=== PATIENT | female | born 1950 | race Caucasian/White ===

== ENCOUNTER → 2018-01-04 15:08 | Outpatient (CLI) | payer MEDICARE, SELFPAY ==
[2018-01-04 17:24] LABS: Add Manual Diff / Slide Review NO; Eosinophils Percent Auto 2.9 % (2-4); Hematocrit 42.6 % (36-46); Hemoglobin 14.7 g/dL (12.0-16.0); Lymphocytes Percent Auto 28.1 % (25-40); Mean Corpuscular HGB Conc 34.6 % (30-36); Mean Corpuscular Hemoglobin 31.3 PG (26-34); Mean Corpuscular Volume 90.4 fL (80-100); Neutrophils Absolute Auto 4500 /uL (3000-5900); Platelet Count 234 X10^3/uL (150-400); Red Blood Cell Count 4.71 X10^6/uL (4.0-5.2); Red Cell Distribution Width 13.3 % (11.6-14.8); White Blood Cell Count 7.7 X10^3/uL (4.5-11.0)
[2018-01-04 18:04] LABS: Alanine Aminotransferase 27 IU/L (9-52); Albumin 4.4 g/dL (3.5-5.0); Albumin Globulin Ratio 1.4 (1.0-2.8); Alkaline Phosphatase 76 U/L (38-126); Aspartate Aminotransferase 28 IU/L (14-36); BUN Creatinine Ratio 22.9 (6-22); Bilirubin Total 0.5 mg/dL (0.2-1.3); Bilirubin Unconjugated 0.1 mg/dL (0.0-1.1); Blood Urea Nitrogen 16 mg/dL (7-17); Calcium 9.7 mg/dL (8.4-10.2); Carbon Dioxide 26 mmol/L (22-32); Chloride 104 mmol/L (98-107); Estimated Glomerular Filt Rate > 60.0 mL/min (>60); Globulin 3.1 g/dL (1.7-4.1); Glucose 150 mg/dL (80-110); HEMOLYSIS 16 (0-50); Potassium 4.2 mmol/L (3.4-5.1); Sodium 143 mmol/L (137-145); Total Protein 7.5 g/dL (6.3-8.2)
[2018-01-07 14:28] LABS: QuantiFERON TB Negative (Negative)
== END ==
PROVIDERS: Family Provider Family Medicine; PCP Family Medicine; Visit Provider Physician Assistant Medical
DX: L40.0 Psoriasis vulgaris (principal)
CPT/HCPCS: 36415; 80053; 80076; 85025; 86480

== ENCOUNTER → 2018-11-12 09:04 | Outpatient (CLI) | payer OTHER, MEDICARE, SELFPAY ==
[2018-11-12 11:12] LABS: Add Manual Diff / Slide Review NO; Basophils Absolute Auto 100 /uL (0-100); Basophils Percent Auto 1.4 % (0-2); Eosinophils Absolute Auto 300 /uL (0-450); Eosinophils Percent Auto 4.4 % (2-4); Hematocrit 40.1 % (36-46); Hemoglobin 13.7 g/dL (12.0-16.0); Lymphocytes Absolute Auto 2200 /uL (1100-4500); Lymphocytes Percent Auto 37.6 % (25-40); Mean Corpuscular HGB Conc 34.1 % (30-36); Mean Corpuscular Hemoglobin 30.8 PG (26-34); Mean Corpuscular Volume 90.3 fL (80-100); Monocytes Absolute Auto 700 /uL (0-900); Monocytes Percent Auto 11.2 % (3-14); Neutrophils Absolute Auto 2600 /uL (1500-7000); Neutrophils Percent Auto 45.4 % (50-75); Platelet Count 211 X10^3/uL (150-400); Red Blood Cell Count 4.44 X10^6/uL (4.0-5.2); Red Cell Distribution Width 13.2 % (11.6-14.8); White Blood Cell Count 5.8 X10^3/uL (4.5-11.0)
[2018-11-12 11:54] LABS: Alanine Aminotransferase 19 IU/L (9-52); Albumin 4.3 g/dL (3.5-5.0); Albumin Globulin Ratio 1.4 (1.0-2.8); Alkaline Phosphatase 85 U/L (38-126); Aspartate Aminotransferase 28 IU/L (14-36); BUN Creatinine Ratio 28.6 (6-22); Bilirubin Total 0.4 mg/dL (0.2-1.3); Blood Urea Nitrogen 20 mg/dL (7-17); Calcium 10.2 mg/dL (8.4-10.2); Carbon Dioxide 28 mmol/L (22-32); Chloride 103 mmol/L (98-107); Estimated Glomerular Filt Rate > 60.0 mL/min (>60); Glucose 111 mg/dL (80-110); HEMOLYSIS < 15 (0-50); Potassium 4.6 mmol/L (3.4-5.1); Sodium 140 mmol/L (137-145); Total Protein 7.3 g/dL (6.3-8.2)
[2018-11-15 11:49] LABS: Mitogen-NIL 6.89 IU/mL; NIL 0.01 IU/mL; QuantiFERON TB NEGATIVE (Negative); TB1-NIL < 0.01 IU/mL; TB2-NIL < 0.01 IU/mL
== END ==
PROVIDERS: Family Provider Family Medicine; PCP Family Medicine; Visit Provider Physician Assistant Medical
DX: L40.0 Psoriasis vulgaris (principal)
CPT/HCPCS: 36415; 80053; 85025; 86480

== ENCOUNTER → 2019-06-03 10:18 | Outpatient (CLI) | payer OTHER, MEDICARE, SELFPAY ==
[2019-06-03 11:00] LABS: Add Manual Diff / Slide Review NO; Basophils Absolute Auto 0 /uL (0-100); Basophils Percent Auto 0.6 % (0-2); Eosinophils Absolute Auto 300 /uL (0-450); Eosinophils Percent Auto 4.2 % (2-4); Hematocrit 41.1 % (36-46); Hemoglobin 13.9 g/dL (12.0-16.0); Lymphocytes Absolute Auto 1900 /uL (1100-4500); Lymphocytes Percent Auto 31.1 % (25-40); Mean Corpuscular HGB Conc 33.9 % (30-36); Mean Corpuscular Hemoglobin 31.4 PG (26-34); Mean Corpuscular Volume 92.8 fL (80-100); Monocytes Absolute Auto 500 /uL (0-900); Monocytes Percent Auto 8.7 % (3-14); Neutrophils Absolute Auto 3500 /uL (1500-7000); Neutrophils Percent Auto 55.4 % (50-75); Platelet Count 240 X10^3/uL (150-400); Red Blood Cell Count 4.43 X10^6/uL (4.0-5.2); White Blood Cell Count 6.2 X10^3/uL (4.5-11.0)
[2019-06-03 11:37] LABS: Alanine Aminotransferase 22 IU/L (<35); Albumin 4.3 g/dL (3.5-5.0); Albumin Globulin Ratio 1.4 (1.0-2.8); Alkaline Phosphatase 84 U/L (38-126); Aspartate Aminotransferase 31 IU/L (14-36); BUN Creatinine Ratio 28.8 (6-22); Bilirubin Total 0.5 mg/dL (0.2-1.3); Blood Urea Nitrogen 23 mg/dL (7-17); Calcium 9.7 mg/dL (8.4-10.2); Carbon Dioxide 26 mmol/L (22-32); Chloride 104 mmol/L (98-107); Estimated Glomerular Filt Rate > 60.0 mL/min (>60); Glucose 111 mg/dL (80-110); HEMOLYSIS < 15 (0-50); Potassium 4.4 mmol/L (3.4-5.1); Sodium 138 mmol/L (137-145); Total Protein 7.3 g/dL (6.3-8.2)
== END ==
PROVIDERS: PCP Family Medicine; Visit Provider Physician Assistant Medical
DX: L40.0 Psoriasis vulgaris (principal)
CPT/HCPCS: 36415; 80053; 85025

== ENCOUNTER → 2020-03-30 11:26 | Outpatient (CLI) | payer OTHER, MEDICARE, SELFPAY ==
[2020-04-01 14:07] LABS: QuantiFERON Mitogen Value 9.07 IU/mL (.); QuantiFERON Nil Value 0.14 IU/mL (.); QuantiFERON TB Gold Plus Negative (Negative); QuantiFERON TB1 Ag Value 0.33 IU/mL (.); QuantiFERON TB2 Ag Value 0.13 IU/mL (.)
== END ==
PROVIDERS: PCP Family Medicine; Referring Provider Physician Assistant Medical; Visit Provider Physician Assistant Medical
DX: Z79.899 Other long term (current) drug therapy (principal)
CPT/HCPCS: 36415; 86480

== ENCOUNTER → 2020-07-12 08:38 | Outpatient (CLI) | payer OTHER, MEDICARE, SELFPAY ==
--- NOTE | 2020-07-12 | DI.RAD.S_ITS ---
PROCEDURE: XR CHEST 2V INDICATIONS: XR TECHNIQUE: 2 views of the chest were acquired. COMPARISON: [facility], , CHEST 1 VIEW, 10/03/2016, 14:22. FINDINGS: Surgical changes and devices: None. Lungs and pleura: Lungs are clear. No pleural effusions or pneumothorax. Mediastinum: Mediastinal contours are normal. Heart size is normal. Bones and chest wall: No suspicious bony abnormalities. Soft tissues appear unremarkable. IMPRESSION: No acute cardiopulmonary abnormality Dictated by: Too Graham M.D. on 07/12/2020 at 9:36 Approved by: Too Graham M.D. on 07/12/2020 at 9:37
--- NOTE | 2020-07-12 | DI.RAD.S_ITS ---
PROCEDURE: XR HIP W PEL IF DONE RT 2V INDICATIONS: XR TECHNIQUE: 3 views of the hip were acquired. COMPARISON: None. FINDINGS: Bones: No fractures or dislocations. No suspicious bony lesions. The visualized pelvic ring appears intact. Soft tissues: No suspicious soft tissue calcifications or masses. IMPRESSION: AP view of the pelvis and two views of the right hip show no fracture or dislocation. Both hips have degenerative changes. Soft tissues are normal. Dictated by: Too Graham M.D. on 07/12/2020 at 9:34 Approved by: Too Graham M.D. on 07/12/2020 at 9:36
== END ==
PROVIDERS: Referring Provider Nurse Practitioner Family; Visit Provider Nurse Practitioner Family
DX: M25.551 Pain in right hip (principal); R05 Cough
CPT/HCPCS: 71046; 73502

== ENCOUNTER → 2020-07-30 13:04 | Outpatient (CLI) | payer OTHER, MEDICARE, SELFPAY ==
[2020-07-30 14:28] LABS: COVID19 -Nasal RAPID Negative (Negative)
--- NOTE | 2020-08-07 11:40 | PM.PFT.1 ---
Pulmonary Function Test Referral & Results Date Patient Seen: 07/30/20 Requesting provider: Saundra Vega Indication: The spirometry demonstrates an FVC of 2.72 L which is 82% of predicted. The FEV1 was measured at 1.87 L which is 73% of predicted. The FEV1/FVC ratio was 69 which is 89% of predicted. Following the administration of bronchodilator there was no appreciable change. Lung volumes show an SVC of 2.61 L which is 84% of predicted. The diffusing capacity was measured at 24.13 which is 89% of predicted. The maximum voluntary ventilation was normal Results: This study demonstrates mild obstructive lung disease based on reduction FEV1 although FEV1/FVC ratio is preserved. There really is no notable evidence of benefit following bronchodilator although there was a slight improvement in FEF 25-75% (22% improvement) which suggest some improvement in small airway flow Patient's lung volumes are also minimally reduced suggesting element of restrictive lung disease Interpretation: Patient with perhaps very mild obstructive lung disease as above. This is also indicated by shape of flow volume loop so I believe it to be real Clinical correlation suggested
== END ==
PROVIDERS: Referring Provider Nurse Practitioner Family
DX: R06.02 Shortness of breath (principal); Z20.822 Contact with and (suspected) exposure to COVID-19; J98.8 Other specified respiratory disorders
CPT/HCPCS: 87635; 94060; 94726; 94729; C9803

== ENCOUNTER → 2022-04-14 14:30 | Outpatient (CLI) | payer OTHER, SELFPAY ==
[2022-04-14 15:44] LABS: Add Manual Diff / Slide Review NO; Basophils Absolute Auto 100 /uL (0-100); Basophils Percent Auto 1.1 % (0-2); Eosinophils Absolute Auto 200 /uL (0-450); Eosinophils Percent Auto 3.1 % (2-4); Hematocrit 38.5 % (36-46); Hemoglobin 13.3 g/dL (12.0-16.0); Lymphocytes Absolute Auto 2400 /uL (1100-4500); Lymphocytes Percent Auto 34.9 % (25-40); Mean Corpuscular HGB Conc 34.6 % (30-36); Mean Corpuscular Hemoglobin 31.3 PG (26-34); Mean Corpuscular Volume 90.6 fL (80-100); Monocytes Absolute Auto 600 /uL (0-900); Monocytes Percent Auto 9.3 % (3-14); Neutrophils Absolute Auto 3500 /uL (1500-7000); Neutrophils Percent Auto 51.6 % (50-75); Platelet Count 238 X10^3/uL (150-400); Red Blood Cell Count 4.25 X10^6/uL (4.0-5.2); Red Cell Distribution Width 13.1 % (11.6-14.8); White Blood Cell Count 6.9 X10^3/uL (4.5-11.0)
[2022-04-14 16:19] LABS: Alanine Aminotransferase 22 IU/L (<35); Albumin 4.2 g/dL (3.5-5.0); Albumin Globulin Ratio 1.4 (1.0-2.8); Alkaline Phosphatase 89 U/L (38-126); Aspartate Aminotransferase 27 IU/L (14-36); BUN Creatinine Ratio 22.5 (6-22); Bilirubin Total 0.4 mg/dL (0.2-1.3); Blood Urea Nitrogen 18 mg/dL (7-17); Calcium 9.5 mg/dL (8.4-10.2); Carbon Dioxide 27 mmol/L (22-32); Chloride 106 mmol/L (98-107); Estimated Glomerular Filt Rate > 60 mL/min (>60); Globulin 3.1 g/dL (1.7-4.1); Glucose 111 mg/dL (80-110); HEMOLYSIS < 15 (0-50); Potassium 3.9 mmol/L (3.4-5.1); Sodium 140 mmol/L (137-145); Total Protein 7.3 g/dL (6.3-8.2)
[2022-04-18 03:57] LABS: QuantiFERON Mitogen Value >10.00 IU/mL (.); QuantiFERON TB Gold Plus Negative (Negative); QuantiFERON TB1 Ag Value 0.01 IU/mL (.); QuantiFERON TB2 Ag Value 0.01 IU/mL (.)
== END ==
PROVIDERS: PCP Family Medicine; Referring Provider Physician Assistant Medical; Visit Provider Physician Assistant Medical
DX: Z79.899 Other long term (current) drug therapy (principal)
CPT/HCPCS: 36415; 80053; 85025; 86480

== ENCOUNTER → 2023-05-26 11:05 | Outpatient (CLI) | payer OTHER, SELFPAY ==
[2023-05-26 11:57] LABS: Add Manual Diff / Slide Review NO; Basophils Absolute Auto 100 /uL (0-100); Basophils Percent Auto 1.1 % (0-2); Eosinophils Absolute Auto 300 /uL (0-450); Eosinophils Percent Auto 4.6 % (2-4); Hematocrit 41.4 % (36-46); Lymphocytes Absolute Auto 2500 /uL (1100-4500); Lymphocytes Percent Auto 36.6 % (25-40); Mean Corpuscular HGB Conc 33.9 % (30-36); Mean Corpuscular Hemoglobin 30.3 PG (26-34); Mean Corpuscular Volume 89.2 fL (80-100); Monocytes Absolute Auto 700 /uL (0-900); Monocytes Percent Auto 10.2 % (3-14); Neutrophils Absolute Auto 3200 /uL (1500-7000); Neutrophils Percent Auto 47.5 % (50-75); Platelet Count 238 X10^3/uL (150-400); Red Blood Cell Count 4.64 X10^6/uL (4.0-5.2); Red Cell Distribution Width 13.2 % (11.6-14.8); White Blood Cell Count 6.8 X10^3/uL (4.5-11.0)
[2023-05-26 12:07] LABS: Alanine Aminotransferase 20 IU/L (<35); Albumin 4.4 g/dL (3.5-5.0); Albumin Globulin Ratio 1.3 (1.0-2.8); Alkaline Phosphatase 83 U/L (38-126); Aspartate Aminotransferase 29 IU/L (14-36); BUN Creatinine Ratio 24.2 (6-22); Bilirubin Total 0.6 mg/dL (0.2-1.3); Blood Urea Nitrogen 16 mg/dL (7-17); Calcium 9.6 mg/dL (8.4-10.2); Carbon Dioxide 26 mmol/L (22-32); Chloride 104 mmol/L (98-107); Cholesterol 227 mg/dL (140-199); Estimated Glomerular Filt Rate > 60 mL/min (>60); Globulin 3.4 g/dL (1.7-4.1); Glucose 100 mg/dL (80-110); HDL Cholesterol 52 mg/dL (40-60); HEMOLYSIS < 15 (0-50); LDL Cholesterol Calculated 139 mg/dL (<100); Potassium 4.2 mmol/L (3.4-5.1); Sodium 139 mmol/L (137-145); Total Protein 7.8 g/dL (6.3-8.2); Triglycerides 182 mg/dL (35-150)
[2023-05-26 12:36] LABS: TSH w/ Reflex to FT4 3.95 uIU/mL (0.47-4.68)
== END ==
PROVIDERS: PCP Family Medicine; Referring Provider Family Medicine; Visit Provider Family Medicine
DX: E03.9 Hypothyroidism, unspecified (principal); R03.0 Elevated blood-pressure reading, without diagnosis of hypertension; R73.01 Impaired fasting glucose; E78.2 Mixed hyperlipidemia
CPT/HCPCS: 36415; 80053; 80061; 84443; 85025

== ENCOUNTER 2023-09-13 12:35 | Day surgery (SDC) | payer OTHER, MEDICARE, SELFPAY ==
--- NOTE | 2023-09-13 | PATH_ITS ---
[facility] Accession Number: [id number] No. of containers..01 Tissue . 01 Material submitted: . colon - CECAL POLYPS X5 . 01 Diagnosis: Colon, cecum, polyps x5, biopsies: Sessile serrated adenomas in two fragments with one benign lymphoid aggregate. Tubular adenomas with inflammation in three fragments. TXN 09/18/2023 1212 Local . 01 Electronically signed: . Tawcullen Trinidad MD, Pathologist NPI- [id number] . 01 Gross description: . Received in formalin, labeled with two identifiers and cecal polyps, are 5 fragments of orantes, soft tissue ranging in size from 0.3 cm to 0.9 cm in greatest dimension. All tissue is entirely submitted in one cassette. ([id number]) /FRR 09/15/2023 1826 Local . 01 Pathologist provided ICD-10: Z12.11 . 01 CPT . 776129 Specimen Comment: A courtesy copy of this report has been sent to [phone] Performed at: 01 [facility] [address] [place] [address], [place], [place] [id number] MD Hector High MD Phone: [phone]
[2023-09-13 13:08] VITALS: BP 159/72; PULSE 81; RESP 16; TEMP 36.6; O2SAT 99
--- NOTE | 2023-09-13 14:14 | P.HP_ITS ---
History of Present Illness History of Present Illness Date Patient Seen: 09/13/23 Time Patient Seen: 14:14 Chief complaint: Dx Colonoscopy w/poss bx Narrative: Sharon is a 73-year-old woman who is here for colonoscopy for a positive fit test. Please see the office note from July 30 for details. [facility] Medical History Hypothyroidism Hypertension Insomnia Social History Smoking Status: Never smoker alcohol intake: current Meds Home Medications and Allergies Home Medications Medication Instructions Recorded Confirmed Type propranolol 10 mg tablet 10 mg PO SEE INSTRUCTIONS #100 tabs 07/26/16 09/13/23 Rx apremilast 30 mg tablet (Otezla) 30 mg PO BID 07/30/23 09/13/23 History levothyroxine 125 mcg capsule 125 mcg PO DAILY 07/30/23 09/13/23 History losartan 50 mg tablet 50 mg PO DAILY 07/30/23 07/30/23 History methocarbamol 500 mg tablet 500 mg PO ONCE 07/30/23 09/13/23 History naproxen sodium 220 mg tablet 220 mg PO BID PRN Pain (Scale 07/30/23 09/13/23 History (Aleve) Score 1-3) omeprazole 20 mg tablet,delayed 20 mg PO DAILY 07/30/23 09/13/23 History release theanine 200 mg capsule 200 mg PO DAILY 07/30/23 07/30/23 History trazodone 50 mg tablet 75 mg PO BEDTIME PRN Insomnia 07/30/23 09/13/23 History Allergies Allergy/AdvReac Type Severity Reaction Status Date / Time Sulfa (Sulfonamide Allergy Unknown HIVES Verified 09/13/23 12:42 Antibiotics) [SULFA (SULFONAMIDE ANTIBIOTICS)] Exam Vital Signs (past 8 hours): - 09/13/23 13:08 Temperature 97.8 F Pulse Rate 81 Respiratory Rate 16 Blood Pressure 159/72 H Pulse Oximetry 99 Oxygen Delivery Method Room Air Oxygen Delivery Method Room Air Const General: No acute distress Resp Effort & Inspection: normal respiratory effort Assessment & Plan Assessment and plan (1) Positive colorectal cancer screening using Cologuard test: Status: Acute Plan We reviewed the risks and benefits for colonoscopy and she would like to proceed
--- NOTE | 2023-09-13 14:59 | P.OP.COLON_ITS ---
Operative Date/Time/Diagnoses Date of procedure: 09/13/23 Time of procedure: 14:59 Pre-op diagnosis: Positive Cologuard test Post-op diagnosis: same Procedure & Clinicians Study performed: Colonoscopy Same procedure as scheduled: Yes Surgeon: Francisco Alvarez Procedure Notes Procedure in detail: Surgeon: Francisco Alvarez MD Anesthesia: Agatha Monroe CRNA Procedure: The patient was brought to the endoscopy suite, placed in left lateral decubitus position. The patient was connected to monitoring devices. A time-out was performed. Sedation was administered. Once the patient was adequately sedated, a digital rectal exam was performed and was normal. The scope was then inserted and advanced to the cecum where the appendiceal orifice was identified and photographed. The scope was then slowly withdrawn over greater than 6 minutes. The mucosa was thoroughly inspected. There were 5 p olyps all in the cecum in all less than 1 cm. Four of them were removed with a cold snare and one was removed with the Jumbo forceps. The scope was retroflexed in the rectum. No other abnormalities were seen. The scope was straightened and removed. The patient was awakened and brought to recovery. Scope withdrawal time: 13 minutes Sedation time: 19 minutes EBL: 5 mL Findings: 5 polyps under 1 cm in the cecum Post-procedure Disposition: PACU
[2023-09-13 15:01] VITALS: BP 123/71; PULSE 70; RESP 18; TEMP 36.8; O2SAT 95
[2023-09-13 15:06] VITALS: BP 127/62; PULSE 62; RESP 14; O2SAT 96
[2023-09-13 15:11] VITALS: BP 134/70; PULSE 63; RESP 14; O2SAT 96
[2023-09-13 15:17] VITALS: BP 136/72; PULSE 56; RESP 14; O2SAT 99
== END 2023-09-13 15:29 | disposition home or self-care (01) ==
PROVIDERS: PCP Family Medicine; Referring Provider Surgery; Visit Provider Surgery
PROC: 0DJD8ZZ Inspection of Lower Intestinal Tract, Via Natural or Artificial Opening Endoscopic (ICD-10-PCS; CPT 45378; principal; 2023-09-13 13:45)
DX: Z12.11 Encounter for screening for malignant neoplasm of colon (principal); R19.5 Other fecal abnormalities; D12.0 Benign neoplasm of cecum
CPT/HCPCS: 45385; 45380; J2704

== ENCOUNTER → 2024-03-06 15:05 | Outpatient (CLI) | payer OTHER, MEDICARE, SELFPAY ==
[2024-03-06 15:27] LABS: Add Manual Diff / Slide Review NO; Basophils Absolute Auto 100 /uL (0-100); Basophils Percent Auto 0.8 % (0-2); Eosinophils Absolute Auto 200 /uL (0-450); Eosinophils Percent Auto 2.5 % (2-4); Hematocrit 38.3 % (36-46); Lymphocytes Absolute Auto 2600 /uL (1100-4500); Lymphocytes Percent Auto 34.7 % (25-40); Mean Corpuscular HGB Conc 33.9 % (30-36); Mean Corpuscular Hemoglobin 30.2 PG (26-34); Mean Corpuscular Volume 89.1 fL (80-100); Monocytes Absolute Auto 700 /uL (0-900); Neutrophils Absolute Auto 3800 /uL (1500-7000); Platelet Count 250 X10^3/uL (150-400); Red Cell Distribution Width 13.6 % (11.6-14.8); White Blood Cell Count 7.3 X10^3/uL (4.5-11.0)
[2024-03-06 15:49] LABS: Alanine Aminotransferase 20 IU/L (<35); Albumin 4.2 g/dL (3.5-5.0); Albumin Globulin Ratio 1.4 (1.0-2.8); Alkaline Phosphatase 95 U/L (38-126); Aspartate Aminotransferase 28 IU/L (14-36); BUN Creatinine Ratio 30.3 (6-22); Bilirubin Total 0.5 mg/dL (0.2-1.3); Blood Urea Nitrogen 23 mg/dL (7-17); Calcium 9.9 mg/dL (8.4-10.2); Carbon Dioxide 26 mmol/L (22-32); Chloride 103 mmol/L (98-107); Estimated Glomerular Filt Rate > 60 mL/min (>60); Glucose 117 mg/dL (80-110); HEMOLYSIS < 15 (0-50); Potassium 4.3 mmol/L (3.4-5.1); Sodium 137 mmol/L (137-145); Total Protein 7.2 g/dL (6.3-8.2)
== END ==
LOC: LAB 15:08
PROVIDERS: PCP Family Medicine; Referring Provider Physician Assistant Medical; Visit Provider Physician Assistant Medical
DX: L40.0 Psoriasis vulgaris (principal); L40.59 Other psoriatic arthropathy; Z79.899 Other long term (current) drug therapy
CPT/HCPCS: 36415; 80053; 85025; 86480

== ENCOUNTER → 2024-05-22 15:33 | Outpatient (CLI) | payer OTHER, MEDICARE, SELFPAY ==
--- NOTE | 2024-05-22 15:37 | DI.RAD.S_ITS ---
PROCEDURE: XR HAND LT MIN 3V INDICATIONS: PAIN IN BOTH HANDS TECHNIQUE: 3 views of the hand acquired. COMPARISON: None. FINDINGS: Bones: No acute fractures or dislocations. Carpal bones are normally aligned. No suspicious bony lesions. Diffuse bilateral arthritic changes at the interphalangeal joints of the fingers and at the 1st carpometacarpal, 1st carpometacarpal, and triscaphe joint. A few scattered juxta-articular lucencies are present. Generalized osteopenia. Soft tissues: No suspicious soft tissue calcifications. IMPRESSION: Moderate to severe arthritic changes throughout the wrist and fingers. A few juxta-articular lucencies may represent degenerative subchondral cystic changes or chronic osseous erosions. Approved by: Clay Major M.D. on 05/22/2024 at 20:28
--- NOTE | 2024-05-22 15:37 | DI.RAD.S_ITS ---
PROCEDURE: XR HAND RT MIN 3V INDICATIONS: PAIN IN BOTH HANDS TECHNIQUE: 3 views of the hand acquired. COMPARISON: None. FINDINGS: Bones: No acute fractures or dislocations. Carpal bones are normally aligned. No suspicious bony lesions. Joint space narrowing is seen throughout the interphalangeal joints of the fingers with subchondral sclerosis and small marginal osteophytes. Degenerative changes are also seen at the 1st carpometacarpal joint and triscaphe joint as well as the 1st metacarpophalangeal joint. A few scattered juxta-articular lucencies are present including at the 2nd metacarpophalangeal joint. There is generalized osteopenia. Soft tissues: No suspicious soft tissue calcifications. IMPRESSION: Multifocal moderate to severe arthritic changes. A few juxta-articular lucencies may represent subchondral cystic changes or chronic osseous erosions. Approved by: Clay Major M.D. on 05/22/2024 at 20:16
== END ==
PROVIDERS: PCP Family Medicine; Referring Provider Family Medicine; Visit Provider Family Medicine
DX: M79.641 Pain in right hand (principal); M85.842 Other specified disorders of bone density and structure, left hand; M85.841 Other specified disorders of bone density and structure, right hand; M79.642 Pain in left hand
CPT/HCPCS: 73130

== ENCOUNTER → 2025-04-29 16:02 | Outpatient (CLI) | payer OTHER, MEDICARE, SELFPAY ==
--- NOTE | 2025-04-29 | DI.RAD.S_ITS ---
PROCEDURE: XR HIP W PEL IF DONE RT 2V
== END ==
LOC: RAD 16:04
PROVIDERS: PCP Family Medicine; Referring Provider Family Medicine; Visit Provider Family Medicine
DX: M25.551 Pain in right hip (principal)
CPT/HCPCS: 73502

== ENCOUNTER 2025-05-21 19:47 | Emergency (ER) | payer OTHER, MEDICARE, SELFPAY ==
[2025-05-21 20:15] VITALS: BP 165/74; PULSE 95; RESP 18; TEMP 36.6; O2SAT 95; BMI 29.9
[2025-05-21] MEDS: ONDANSETRON 4 MG/2 ML INJ IV (21:29)
--- NOTE | 2025-05-21 21:35 | EKG_ITS ---
[address] [address] Test Date: 2025-05-21 Pat Name: September Mari Department: Room: Gender: Female Steward/Stewardess Night: CYRUS : 1950 Requested By: Order Number: [id number] Reading MD: Germain Garcia Measurements Intervals [place] Rate: 93 P: 68 MA: 162 QRS: 66 QRSD: 98 T: 69 QT: 380 QTc: 472 Interpretive Statements Normal sinus rhythm Incomplete right bundle branch block Electronically Signed On 05-23-2025 13:30:40 PST by Germain Garcia
[2025-05-21 21:43] LABS: Add Manual Diff / Slide Review NO; Hematocrit 38.7 % (36-46); Hemoglobin 13.3 g/dL (12.0-16.0); Lymphocytes Absolute Auto 1000 /uL (1100-4500); Mean Corpuscular HGB Conc 34.4 % (30-36); Mean Corpuscular Hemoglobin 30.1 PG (26-34); Mean Corpuscular Volume 87.6 fL (80-100); Platelet Count 261 X10^3/uL (150-400)
[2025-05-21 21:47] LABS: Alanine Aminotransferase 20 IU/L (<35); Albumin 4.8 g/dL (3.5-5.0); Albumin Globulin Ratio 1.3 (1.0-2.8); Alkaline Phosphatase 83 U/L (38-126); Blood Urea Nitrogen 20 mg/dL (7-17); Calcium 9.8 mg/dL (8.4-10.2); Carbon Dioxide 23 mmol/L (22-32); Chloride 104 mmol/L (98-107); Estimated Glomerular Filt Rate > 60 mL/min (>60); Globulin 3.8 g/dL (1.7-4.1); Glucose 170 mg/dL (70-99); Lipase 456 U/L (23-300); Sodium 138 mmol/L (137-145)
[2025-05-21 21:49] LABS: HEMOLYSIS 115 (0-50); Potassium 4.5 mmol/L (3.4-5.1)
[2025-05-21 21:50] LABS: Total Protein 8.6 g/dL (6.3-8.2)
[2025-05-21 22:07] LABS: Culture Indicated Urine Cult Not Indicated
--- NOTE | 2025-05-21 22:47 | ED.NAVMDI ---
HPI - Nausea/Vomiting/Diarrhea General Chief complaint: Nausea/Vomiting/Diarrhea Stated complaint: Vomiting past couple hours Time Seen by Provider: 05/21/25 22:46 Source: patient Mode of arrival: Ambulatory History of Present Illness HPI Narrative: Patient is a 75-year-old female history of psoriatic arthritis, hypothyroid hypertension presenting today with nausea vomiting. Reports that it came on rather suddenly she has been throwing up pretty persistently for 3 hours unable to keep anything down. No diarrhea no fever no chills. She had some acid and burning in her chest for that as gone now. No one else is sick at home. She does have prior surgery of appendicitis. She now since being in the emergency department has not had any further vomiting. Related Data Home Medications ?Medication ?Instructions ?Recorded ?Confirmed apremilast 30 mg tablet (Otezla) 30 mg PO BID 07/30/23 09/13/23 levothyroxine 125 mcg capsule 125 mcg PO DAILY 07/30/23 09/13/23 losartan 50 mg tablet 50 mg PO DAILY 07/30/23 07/30/23 methocarbamol 500 mg tablet 500 mg PO ONCE 07/30/23 09/13/23 naproxen sodium 220 mg tablet 220 mg PO BID PRN Pain (Scale 07/30/23 09/13/23 (Aleve) Score 1-3) omeprazole 20 mg tablet,delayed 20 mg PO DAILY 07/30/23 09/13/23 release theanine 200 mg capsule 200 mg PO DAILY 07/30/23 07/30/23 trazodone 50 mg tablet 75 mg PO BEDTIME PRN Insomnia 07/30/23 09/13/23 Previous Rx's ?Medication ?Instructions ?Recorded propranolol 10 mg tablet 10 mg PO SEE INSTRUCTIONS #100 tabs 07/26/16 ondansetron 4 mg disintegrating 4 mg PO Q8H PRN nausea and 05/22/25 tablet vomiting #10 tabs Allergies Allergy/AdvReac Type Severity Reaction Status Date / Time Sulfa (Sulfonamide Allergy Unknown HIVES Verified 05/21/25 20:16 Antibiotics) (SULFA (SULFONAMIDE ANTIBIOTICS)) Patient History Medical History Hypothyroidism Hypertension Insomnia Social History Smoking Status: Never smoker alcohol intake: current Smoking Status: Never smoker alcohol intake frequency: a few times a month Exam Initial Vital Signs Initial Vital Signs: Vital Signs Temperature 97.8 F 05/21/25 20:15 Pulse Rate 95 H 05/21/25 20:15 Respiratory Rate 18 05/21/25 20:15 Blood Pressure 165/74 H 05/21/25 20:15 Pulse Oximetry 95 05/21/25 20:15 Oxygen Delivery Method Room Air 05/21/25 20:15 GENERAL: Alert well-appearing 75-year-old female and in no acute distress. HEENT: Head atraumatic,EOMI, pupils reactive, face symmetric, moist mucous membranes CARDIOVASCULAR: Regular rate and rhythm without murmurs, rubs or gallops. RESPIRATORY: Breath sounds equal bilaterally, no wheezes rales or rhonchi. ABDOMEN: Soft, nontender. Normoactive bowel sounds all 4 quadrants. No guarding or rebound. EXTREMITIES: Normal range of motion, no clubbing or edema. Neurovascularly intact NEUROLOGICAL: Alert and oriented x4.Normal gait and speech. Cranial nerves II through XII grossly intact. SKIN: Warm, dry, no laceration, no petechiae, no rashes or lesions. Course Orders Ordered: ED Orders 05/21/25 20:30 Complete Blood Count AUTO DIFF Stat Comprehensive Metabolic Panel Stat Lipase Stat 05/21/25 21:27 EKG-12 Lead Stat 05/21/25 21:33 Urine Microscopic Stat 05/21/25 23:50 CT abdomen pelvis w con Stat Ondansetron HCl (Ondansetron 4 Mg/2 Ml Inj) 4 mg IV NOW PRN PRN Reason: Nausea And Vomiting Last Admin: 05/21/25 21:29 Dose: 4 mg Documented By: XI Ondansetron HCl (Ondansetron 4 Mg Odt) 4 mg PO NOW PRN PRN Reason: Nausea And Vomiting Discontinued Medications Acetaminophen (Acetaminophen 325 Mg Tablet) 975 mg PO NOW ONE Stop: 05/22/25 00:51 Last Admin: 05/22/25 00:54 Dose: 975 mg Documented By: CYRUS Sodium Chloride (Normal Saline 0.9%) 1,000 mls @ 1,000 mls/hr IV BOLUS ONE Stop: 05/21/25 23:46 Last Infusion: 05/22/25 00:27 Dose: Infused Documented By: Admin: 05/21/25 22:57 Dose: 1,000 mls/hr Documented By: XI Vital Signs Vital signs: Vital Signs - 8 hr 05/21/25 20:15 Temperature 97.8 F Pulse Rate 95 H Respiratory Rate 18 Blood Pressure 165/74 H Pulse Oximetry 95 Oxygen Delivery Method Room Air MDM - Nausea/Vomiting/Diarrhea Lab Data 05/21/25 20:30 05/21/25 20:30 Labs: Lab Results 05/21/25 05/21/25 Range/Units 20:30 21:33 WBC 15.0 H (4.5-11.0) X10^3/uL RBC 4.42 (4.0-5.2) X10^6/uL Hgb 13.3 (12.0-16.0) g/dL Hct 38.7 (36-46) % MCV 87.6 (80-100) fL MCH 30.1 (26-34) PG MCHC 34.4 (30-36) % RDW 13.6 (11.6-14.8) % Plt Count 261 (150-400) X10^3/uL Neut % (Auto) 80.9 H (50-75) % Lymph % (Auto) 6.9 L (25-40) % [place] % (Auto) 11.2 (3-14) % Eos % (Auto) 0.7 L (2-4) % Baso % (Auto) 0.3 (0-2) % Neut # (Auto) 81004 H (3036-5913) /uL Lymph # (Auto) 1000 L (3843-8120) /uL [place] # (Auto) 1700 H (0-900) /uL Eos # (Auto) 100 (0-450) /uL Baso # (Auto) 0 (0-100) /uL Sodium 138 (137-145) mmol/L Potassium 4.5 (3.4-5.1) mmol/L Chloride 104 (98-107) mmol/L Carbon Dioxide 23 (22-32) mmol/L BUN 20 H (7-17) mg/dL Creatinine 0.69 (0.52-1.04) mg/dL Estimated GFR > 60 (>60) mL/min BUN/Creatinine Ratio 29.0 H (6-22) Glucose 170 H (70-99) mg/dL Calcium 9.8 (8.4-10.2) mg/dL Total Bilirubin 0.7 (0.2-1.3) mg/dL AST 41 H (14-36) IU/L ALT 20 (<35) IU/L Alkaline Phosphatase 83 (38-126) U/L Total Protein 8.6 H (6.3-8.2) g/dL Albumin 4.8 (3.5-5.0) g/dL Globulin 3.8 (1.7-4.1) g/dL Albumin/Globulin Ratio 1.3 (1.0-2.8) Lipase 456 H (23-300) U/L Urine RBC 5-10/hpf H (0-5/HPF) Urine WBC 0-1/hpf (0-5/HPF) Ur Squamous Epith Cells 0-1 /hpf (0-5/HPF) Urine Bacteria None seen (None) Ur Culture Indicated? Cult not indicated Vol Urine Centrifuged 10ml (spun) Urine Dip Bedside Urine Glucose Negative Bedside Urine Bilirubin - Negative Bedside Urine Ketone +/- 5 Urine Specific Keo 1.030 Bedside Urine Occult Blood ++ Bedside Urine pH 6.0 Bedside Urine Protein +/- 15 Bedside Urine Urobilinogen - Negative Bedside Urine Nitrite - Negative Bedside Urine Leukocytes - Negative Esterase Imaging Data CT scan - abdomen/pelvis: Radiologist's Impression: PROCEDURE: CT ABDOMEN PELVIS W CON INDICATIONS: vomiting prior appy TECHNIQUE: After the administration of intravenous contrast, axial sections acquired from the lung bases to the pubic symphysis. Coronal and sagittal reformats were performed. For radiation dose reduction, the following was used: automated exposure control, adjustment of mA and/or kV according to patient size. COMPARISON: None. FINDINGS: Image quality: Diagnostic. Lower Chest: No significant findings. ABDOMEN: Liver: No solid mass. Gallbladder: No radiopaque gallstones or wall thickening. Biliary ducts: No biliary dilation. Pancreas: No ductal dilation. Spleen: Size is within normal limits. Adrenal Glands: No adrenal nodules. Kidneys and Ureters: No hydronephrosis. No solid mass. No complex renal cystic lesion which requires follow up. Stomach and Bowel: Normal colonic caliber, without significant wall thickening. Scattered colonic diverticula without evidence of acute diverticulitis. Peritoneum: No abnormal intraperitoneal fluid. No free air. Ventral Wall: No significant ventral hernia. Abdominal Nodes: No retroperitoneal or mesenteric adenopathy by size criteria. Vessels: Aorta and inferior vena cava are normal in size. PELVIS: Pelvic Organs: Unremarkable. Bladder: No bladder wall thickening, accounting for underdistention. Pelvic Nodes: No enlarged lymph nodes. Miscellaneous: No inguinal hernias are seen. Bones: No aggressive osseous abnormality. Age-appropriate degenerative change. IMPRESSION: No acute abnormalities visualized in the abdomen or pelvis. Dictated by: Danielle Marcano M.D. on 05/22/2025 at 1:39 ECG Data Attestation: I personally reviewed and interpreted this ECG as follows: Interpretation: Normal sinus rhythm rate 93 RI 162, QRS 98, QTC [address] changes T-wave inversions similar to prior MDM Narrative Medical decision making narrative: MDM CC: Nausea vomiting Complicating co-morbidities: Psoriatic arthritis, hypertension hyperlipidemia Data collected from: Patient Medical records reviewed: [ ] Differential considered: Gastroenteritis bowel obstruction ischemic bowel coli cystitis cholelithiasis Exam documented above, pertinent findings include: Abdomen is somewhat tender but no peritoneal signs no significant distention Lab Test results independently reviewed as above. Pertinent findings: CBC shows leukocytosis of 15 mild left shift CMP no electrolyte abnormality glucose 170 no KATIE Bilirubin liver enzymes within normal limits lipase 456 Independently reviewed EKG as above Sinus rhythm no ischemia Imaging studies independently reviewed: CT abdomen pelvis no acute abnormality Consultations: [ ] Treatments: IV fluids Zofran Re-evaluations: Patient ambulated to the restroom without any significant trouble tolerating p.o. fluids Discussion: Patient is 75-year-old female with rapid onset of nausea vomiting. Threw up quite a lot at home but no vomiting here in the ED. Received a L of fluids. No significant electrolyte abnormality or KATIE CT does not show any evidence of obstruction or bowel ischemia. At this time supportive care only. She is tolerating fluids. Discussion with her about p.o. intake at home. Discharge Plan Departure Patient Disposition: Home Clinical Impression: Gastroenteritis Instructions: DI for Viral Gastroenteritis -- Adult Activity Restrictions/Additional Instructions: *You have been diagnosed with gastroenteritis *What to do: At this time increase fluids as tolerated recommend something was sugar and salt such as Pedialyte Gatorade use *Continue to take medications as directed Zofran 4 mg every 8 hours if needed for nausea or *Follow up with your primary care provider in 2-3 days or call [phone] *Return to ER if you should have increasing vomiting abdominal pain inability to tolerate fluids [or] any new, worsening or concerning symptoms Prescriptions: New ondansetron 4 mg tablet,disintegrating 4 mg PO Q8H PRN (Reason: nausea and vomiting) Qty: 10 0RF No Action propranolol 10 MG tablet 10 mg PO SEE INSTRUCTIONS Qty: 100 2RF levothyroxine 125 mcg capsule 125 mcg PO DAILY losartan 50 mg tablet 50 mg PO DAILY omeprazole 20 mg tablet,delayed release (DR/EC) 20 mg PO DAILY theanine 200 mg capsule 200 mg PO DAILY trazodone 50 mg tablet 75 mg PO BEDTIME PRN (Reason: Insomnia) methocarbamol 500 mg tablet 500 mg PO ONCE naproxen sodium [Aleve] 220 mg tablet 220 mg PO BID PRN (Reason: Pain (Scale Score 1-3)) Otezla 30 mg tablet 30 mg PO BID Referrals: Adam Dunham MD [Primary Care Provider, Family Practice] Stand Alone Forms: Patient Portal/API
[2025-05-21 22:53] VITALS: PULSE 95; O2SAT 91
[2025-05-21 22:54] VITALS: BP 147/63; PULSE 92; O2SAT 92
[2025-05-21] MEDS: SODIUM CHLORIDE 0.9% 1,000 ML 1000 ML IV (22:57)
[2025-05-21 23:00] VITALS: PULSE 94; O2SAT 91
[2025-05-21 23:01] VITALS: BP 125/66; PULSE 94; O2SAT 92
[2025-05-21 23:30] VITALS: PULSE 87; O2SAT 91
--- NOTE | 2025-05-21 23:50 | DI.CT.S_ITS ---
PROCEDURE: CT ABDOMEN PELVIS W CON INDICATIONS: vomiting prior appy TECHNIQUE: After the administration of intravenous contrast, axial sections acquired from the lung bases to the pubic symphysis. Coronal and sagittal reformats were performed. For radiation dose reduction, the following was used: automated exposure control, adjustment of mA and/or kV according to patient size. COMPARISON: None. FINDINGS: Image quality: Diagnostic. Lower Chest: No significant findings. ABDOMEN: Liver: No solid mass. Gallbladder: No radiopaque gallstones or wall thickening. Biliary ducts: No biliary dilation. Pancreas: No ductal dilation. Spleen: Size is within normal limits. Adrenal Glands: No adrenal nodules. Kidneys and Ureters: No hydronephrosis. No solid mass. No complex renal cystic lesion which requires follow up. Stomach and Bowel: Normal colonic caliber, without significant wall thickening. Scattered colonic diverticula without evidence of acute diverticulitis. Peritoneum: No abnormal intraperitoneal fluid. No free air. Ventral Wall: No significant ventral hernia. Abdominal Nodes: No retroperitoneal or mesenteric adenopathy by size criteria. Vessels: Aorta and inferior vena cava are normal in size. PELVIS: Pelvic Organs: Unremarkable. Bladder: No bladder wall thickening, accounting for underdistention. Pelvic Nodes: No enlarged lymph nodes. Miscellaneous: No inguinal hernias are seen. Bones: No aggressive osseous abnormality. Age-appropriate degenerative change. IMPRESSION: No acute abnormalities visualized in the abdomen or pelvis. Dictated by: Danielle Marcano M.D. on 05/22/2025 at 1:39 Approved by: Danielle Marcano M.D. on 05/22/2025 at 1:41
[2025-05-22] VITALS: BP 133/60; PULSE 85; O2SAT 93
[2025-05-22 00:21] VITALS: BP 148/68; PULSE 86; O2SAT 94
[2025-05-22 00:30] VITALS: BP 153/69; PULSE 96; O2SAT 94
[2025-05-22] MEDS: ACETAMINOPHEN 325 MG TABLET 975 MG PO (00:54)
[2025-05-22 01:00] VITALS: BP 132/60; PULSE 86; O2SAT 90
[2025-05-22 01:30] VITALS: BP 122/56; PULSE 85; O2SAT 91
[2025-05-22 02:00] VITALS: BP 106/55; PULSE 84; O2SAT 91
[2025-05-22] MEDS: ONDANSETRON 4 MG ODT PREPACK 1 BOTTLE MISC (02:08)
== END 2025-05-22 02:17 | disposition home or self-care (01) ==
PROVIDERS: Emergency Provider Emergency Medicine; PCP Family Medicine
DX: K52.9 Noninfective gastroenteritis and colitis, unspecified (principal); I10 Essential (primary) hypertension
CPT/HCPCS: 74177; 80053; 81003; 81015; 83690; 85025; 93005; 96361; 96374; 99284; J2405; J7030; Q9967